=== PATIENT | female | born 1980 | race Asian ===

== ENCOUNTER → 2016-02-21 | Outpatient (CLI) | payer BC ==
[2016-02-21 08:33] LABS: HEMATOCRIT 39.4 % (37-47); MEAN CELL VOLUME 90.8 fL (80-100); MEAN CORPUSCULAR HEMOGLOBIN 31.3 pg (25-34); MEAN PLATELET VOLUME 9.9 fL (7.4-10.4); PLATELET COUNT 261 K/uL (130-400); RED BLOOD COUNT 4.34 M/uL (4.2-5.4); WHITE BLOOD COUNT 5.46 K/uL (4.8-10.8)
[2016-02-21 08:39] LABS: MEAN CORPUSCULAR HGB CONC 34.5 g/dl (32-36)
[2016-02-21 09:19] LABS: RUBELLA SCREEN IgG (AT CCH) IMMUNE (IMMUNE)
[2016-02-24 01:28] LABS: HEMOGLOBIN A2 2.8 % (1.8-3.5); HGB 13.4 g/dL (11.7-15.5); MCH 31.1 pg (27.0-33.0); MCV 92.8 FL (80.0-100.0); RBC 4.31 Mill/uL (3.80-5.10); RDW 13.1 % (11.0-15.0); VARICELLA ZOS VIR IGG VALUE 2.56 INDEX
--- NOTE | 2016-02-29 06:10 | CODING QUERY MEDICAL NECESSITY ---
SUPPORTING DIAGNOSIS NEEDED A supporting diagnosis is required for the test/procedure performed on this patient in order for us to be reimbursed by the patient's insurance. Please provide a supporting diagnosis for the following test/procedure listed below next to the test name along with your signature. *If there is no additional diagnosis for this patient that would support the following test/procedure please document that below next to the test/procedure. Test(s)/Procedure(s) that require a supporting diagnosis: DOS: 02/21/16 * VITAMIN D DIAGNOSIS: Provider Signature: Date: Thank you Ela [facility] Information Management Once completed, please kindly fax back to [phone] For questions please call [phone]
== END | disposition home or self-care (01) ==
LOC: C.LAB1850 07:50
PROVIDERS: ATTEND Specialist
DX: Z31.41 Encounter for fertility testing (principal); Z01.83 Encounter for blood typing; Z11.59 Encounter for screening for other viral diseases; Z11.3 Encounter for screening for infections with a predominantly sexual mode of transmission; Z11.4 Encounter for screening for human immunodeficiency virus [HIV]; Z13.0 Encounter for screening for diseases of the blood and blood-forming organs and certain disorders involving the immune mechanism; Z13.21 Encounter for screening for nutritional disorder

== ENCOUNTER → 2016-08-02 | Outpatient (CLI) | payer BC ==
[2016-08-05 01:36] LABS: CHLAMYDIA TRACH RNA*** NOT DETECTED (NOT DETECTED); GC (NEIS GONORRHOEAE)RNA** NOT DETECTED (NOT DETECTED)
== END | disposition home or self-care (01) ==
LOC: C.LABSPEC 17:37
PROVIDERS: ATTEND Obstetrics & Gynecology
DX: O09.01 Supervision of pregnancy with history of infertility, first trimester (principal)

== ENCOUNTER → 2016-09-21 | Outpatient (CLI) | payer BC ==
[2016-09-21 17:31] LABS: GTGD 50 Grams
[2016-09-25 14:10] LABS: AFP CONCENTRATION 46.3 NG/ML; AFP MULTIPLE OF MEDIAN 1.06; AFPTS INSULIN DEP DIABETIC? NO; AFPTS MATERNAL WT 119 LBS; HISTORY OF NTD NO; REPEAT SAMPLE? NO
== END | disposition home or self-care (01) ==
LOC: C.LAB1850 16:08
PROVIDERS: ATTEND Obstetrics & Gynecology
DX: O09.812 Supervision of pregnancy resulting from assisted reproductive technology, second trimester (principal)

== ENCOUNTER → 2016-12-06 | Outpatient (CLI) | payer BC ==
[2016-12-06 12:13] LABS: HEMATOCRIT 34.8 % (37-47)
[2016-12-06 12:34] LABS: GTGD 50 Grams
[2016-12-06 14:27] LABS: URINE APPEARANCE CLEAR (CLEAR); URINE BILIRUBIN NEG (NEG); URINE COLOR YELLOW; URINE EPITHELIAL CELL AUTO 20-30 /lpf (0-5); URINE NITRITE NEG (NEG); URINE PH 8.5 (4.5-7.5); URINE SPECIFIC GRAVITY 1.014 (1.000-1.030); UROBILINOGEN NEG (NEG)
[2016-12-06 14:31] LABS: MANUAL MICROSCOPIC REQUIRED? NO; REVIEW REQ? NO
== END | disposition home or self-care (01) ==
LOC: C.LAB1850 10:38
PROVIDERS: ATTEND Obstetrics & Gynecology
DX: O09.813 Supervision of pregnancy resulting from assisted reproductive technology, third trimester (principal)

== ENCOUNTER → 2017-02-01 | Outpatient (CLI) | payer BC ==
[~2017-02-01] MED LIST: CALC500C3; OXYC-57 PO; PRENTAB26 PO
== END | disposition home or self-care (01) ==
LOC: C.LABSPEC 13:21
PROVIDERS: ATTEND Obstetrics & Gynecology
DX: O09.813 Supervision of pregnancy resulting from assisted reproductive technology, third trimester (principal)

== ENCOUNTER 2017-02-14 03:39 | Inpatient (IN) | payer OTHER ==
[~2017-02-14] VITALS: Ht 149.9 cm; Wt 65.0 kg
[2017-02-14] MEDS ORDERED: LACTATED RINGER'S 1000ML 1,000 ML IV PRN (04:17)
[2017-02-14] MEDS ORDERED: PRENTAB26 PO (04:41)
[2017-02-14] MEDS ORDERED: CALC500C3 (04:41)
[2017-02-14 04:42] VITALS: Ht 149.9 cm; Wt 65.0 kg
[2017-02-14] MEDS ORDERED: PATIENT'S ALLERGY INFO NEEDS ENTERED SCH (04:45)
[2017-02-14] MEDS ORDERED: EpHEDrine SULFATE INJ 50 MG/ML AMP ONE (04:52)
[2017-02-14] MEDS ORDERED: BUPIVACAINE 0.25% 30 ML VIAL ONE (04:52)
[2017-02-14] MEDS ORDERED: FENTANYL 2MCG/ML ROPIV 1.25MG/ML 100ML BAG EPI ONE (04:52)
[2017-02-14] MEDS ORDERED: FENTANYL CITRATE INJ 50 MCG/1 ML 2 ML VIAL ONE (04:52)
[2017-02-14 04:57] LABS: HEMATOCRIT 37.6 % (37-47); HEMOGLOBIN 12.9 g/dL (12.0-16.0); MEAN CELL VOLUME 90.6 fL (80-100); MEAN CORPUSCULAR HEMOGLOBIN 31.1 pg (25-34); MEAN CORPUSCULAR HGB CONC 34.3 g/dl (32-36); PLATELET COUNT 261 K/uL (130-400); RED CELL DISTRIBUTION WIDTH CV 13.6 % (11.5-14.5); RED CELL DISTRIBUTION WIDTH SD 44.7 fL (36.4-46.3); WHITE BLOOD COUNT 12.51 K/uL (4.8-10.8)
[2017-02-14] MEDS ORDERED: NALOXONE HCL INJ 1 MG in SODIUM CHLORIDE 0.9% 1000ML 1,000 ML IV PRN ×4 (05:44)
[2017-02-14] MEDS ORDERED: LACTATED RINGER'S 1000ML 500 ML IV PRN ×2 (05:44→09:34)
[2017-02-14] MEDS ORDERED: DiphenhydrAMINE HCL 50 MG/ML VIAL IV PRN (05:45)
[2017-02-14] MEDS ORDERED: NALBUPHINE HCL INJ 10 MG/ML AMP IV PRN (05:45)
[2017-02-14] MEDS ORDERED: ONDANSETRON INJ 2 MG/ML 2 ML VIAL IV PRN ×2 (05:45→16:30)
[2017-02-14] MEDS ORDERED: PROMETHAZINE HCL INJ 25 MG in SODIUM CHLORIDE 0.9% 50ML 50 ML IV PRN (05:45)
[2017-02-14] MEDS ORDERED: NALOXONE HCL INJ 0.4 MG/1 ML VIAL/CARP IV PRN (05:45)
[2017-02-14] MEDS ORDERED: EpHEDrine SULFATE INJ 50 MG/ML AMP IV PRN ×2 (05:45→16:30)
[2017-02-14] MEDS: LACTATED RINGER'S 1000ML 1,000 ML IV SCH ×2 (05:47→14:29)
[2017-02-14] MEDS ORDERED: CEFAZOLIN IV 2,000 MG in SYRINGE 0 ML IV SCH (06:00)
[2017-02-14] MEDS: FENTANYL 2MCG/ML ROPIV 1.25MG/ML 100ML BAG EPI PRN ×2 (07:09→13:49)
[2017-02-14] MEDS ORDERED: OXYTOCIN 30 UNITS/500ML NSS IV PRN (09:45)
[2017-02-14] MEDS ORDERED: MoRPHine SULFATE PF 1 MG/ML 10 ML AMP/VIAL ONE (15:37)
[2017-02-14] MEDS ORDERED: LIDOCAINE/EPINEPHRINE 2% 1:200,000 20 ML SDV ONE (15:37)
[2017-02-14] MEDS ORDERED: PHENYLEPHRINE 100MCG/ML 5ML SYR ONE (15:37)
[2017-02-14] MEDS ORDERED: CITRIC ACID/SODIUM CITRATE 15 ML UDC ONE (15:41)
[2017-02-14] MEDS ORDERED: OXYTOCIN INJ 10 UNITS/ML VIAL ONE ×2 (15:46→16:17)
[2017-02-14] MEDS ORDERED: CARBOPROST TROMETHAMINE 250 MCG/ML AMP ONE (15:51)
[2017-02-14] MEDS ORDERED: CEFAZOLIN SOD 1 GM VIAL ONE (16:00)
[2017-02-14] MEDS ORDERED: CITRIC ACID/SODIUM CITRATE 15 ML UDC PO ONE (16:00)
[2017-02-14] MEDS ORDERED: KETOROLAC TROMETHAMINE 30 MG/ML VIAL ONE (16:16)
[2017-02-14] MEDS ORDERED: PHENYLEPHRINE HCL INJ 10 MG/ML VIAL ONE (16:28)
[2017-02-14] MEDS ORDERED: ONDANSETRON INJ 2 MG/ML 2 ML VIAL ONE (16:28)
[2017-02-14] MEDS ORDERED: FENTANYL CITRATE INJ 50 MCG/1 ML 2 ML VIAL IV PRN (16:30)
[2017-02-14] MEDS ORDERED: NO NARCOTICS OR SEDATIVES SCH (16:30)
[2017-02-14] MEDS ORDERED: MEPERIDINE HCL 25 MG/ML CARP IV PRN (16:30)
[2017-02-14] MEDS ORDERED: MoRPHine SULFATE PF 1 MG/ML 10 ML AMP/VIAL EPI PRN (16:30)
[2017-02-14] MEDS ORDERED: ATROPINE SULFATE 0.1 MG/ML 5ML SYR IV PRN (16:30)
[2017-02-14] MEDS ORDERED: CONTINUE MEDICATION ONE (16:30)
[2017-02-14] MEDS ORDERED: KETOROLAC TROMETHAMINE 30 MG/ML VIAL IV. PRN (16:30)
[2017-02-14] MEDS ORDERED: HYDROCORTISONE ACETATE 25 MG SUPP PR PRN (17:00)
[2017-02-14] MEDS ORDERED: BENZOCAINE 20% AER SPR 82.5 GM CAN EXT PRN (17:00)
[2017-02-14] MEDS ORDERED: DIPHTHERIA/TETANUS/PERTUSSIS 0.5 ML SYR/VIAL IM. ONE (17:00)
[2017-02-14] MEDS ORDERED: SUPERCREAM 0.870 % 15GM JAR EXT PRN (17:00)
[2017-02-14] MEDS ORDERED: LANOLIN OINT EXT PRN (17:00)
--- NOTE | 2017-02-14 17:03 | [facility] Post Operative Brief Note ---
Immediate Operative Summary Operative Date Feb 14, 2017. Pre-Operative Diagnosis 1) Term 2) Failure to Descend Post-Operative Diagnosis 1) Same 2) omental adhesions Procedure(s) Performed 1) Primary Caesarean Section; Delivery of a live male child at 1612 2) Lysis of omental adhesions 3) Excision of left paratubal cyst Surgeon Dr Mills Statement Clerks Manager Surgeon(s) Farhana Shannon RN Estimated Blood Loss 800 cc Findings viable male infant, Apgars 8/9; weight: Arterial/Venous cord gasses pending; filmy adhesions of omentum to the posterior surface of the uterus and both fallopian tubes. Adhesions lysed. Left paratubal cyst excised. Fluids (cc crystalloids) 1600 Specimens cord blood venous and arterial blood gases placenta-exam paratubal cyst Drains Wang to gravity Anesthesia Epidural Complication(s) None Disposition L&D
--- NOTE | 2017-02-14 17:05 | Anesthesiology Progress Note ---
Anesthesia Post Op Note Date & Time Feb 14, 2017 at 17:05 Vital Signs Pain Intensity: 0.0 Notes Mental Status: alert / awake / arousable, participated in evaluation Pt Amnestic to Procedure: Yes Nausea / Vomiting: adequately controlled Pain: adequately controlled Airway Patency, RR, SpO2: stable & adequate BP & HR: stable & adequate Hydration State: stable & adequate Anesthetic Complications: no major complications apparent
--- NOTE | 2017-02-14 17:28 | OPERATIVE REPORT ---
DATE OF OPERATION: 02/14/2017 ADMITTING DIAGNOSES: 1. Term . 2. Failure to descend. POSTOPERATIVE DIAGNOSES: 1. Same. 2. Omental adhesions. 3. Paratubal cyst, left. PROCEDURE PERFORMED: 1. Primary low cervical transverse section. 2. Lysis of omental adhesions. 3. Excision of left paratubal cyst. SURGEON: Dr. Mills. ANESTHESIA: Epidural. FINDINGS: Viable male infant with Apgars of 8 and 9, weight of 6 pounds 9 ounces, arterial and venous cord gases pending. Extensive adhesions of the omentum to the posterior surface of the uterus as well as to both adnexa and fallopian tube, these were taken down with cautery, and left paratubal cyst excised and sent for pathological evaluation. PROCEDURE IN DETAIL: The patient was taken to the operating room and after dosing of epidural anesthesia was placed in supine position and draped and prepped in usual fashion. A Pfannenstiel type incision was made. Underlying subcutaneous tissue was dissected down to the ventral abdominal fascia, which was nicked and opened in a horizontal manner. Preperitoneal fascia was dissected away until the peritoneal cavity was entered and opened in a vertical manner. The peritoneum overlying the uterus was elevated, opened in a semi-lunar fashion, the inferior margin of which was taken down creating the bladder flap. Uterus was entered sharply and extended in a semi-lunar fashion manually. A viable male was delivered. Cord was clamped and cut and the baby was passed off to pediatrics who was in attendance for the delivery. Cord gases, cord blood samples obtained. Placenta was delivered spontaneously and sent for pathological evaluation. The uterus was then exteriorized and wiped clean of any residual blood tissue and/or clot. To promote hemostasis, Hemabate 250 mcg was injected directly into the myometrium. The uterine incision was then closed with 2 layers of 4-0 Vicryl, the first a running locking stitch, the second an imbricating stitch. Inspection of the uterus and adnexa showed adhesions extensively of the omentum to the posterior surface of the uterus and to both adnexa. Because of the extensive nature of the adhesions, it was felt that lysis was indicated and using the cautery, the omentum was lysed off the uterus and adnexa. An incidental left paratubal cyst was noted on a long stalk and this was excised and sent for pathological evaluation. The uterus was inspected again for hemostasis, which was present and then the uterus was returned to the pelvic cavity. The paracolic gutters were cleared bilaterally of any blood tissue and/or clot. The sponge and needle count was correct. The rectus muscles were plicated in the midline with a running 2-0 Vicryl stitch. The fascia was closed laterally with a running 0 Vicryl suture. Subcutaneous tissue was irrigated with warm saline and the skin incision was closed with a 5-0 Monocryl subcuticular suture. Sterile dressing was applied and the patient was taken to the recovery room in satisfactory condition. I attest to the content of the Intraoperative Record and any orders documented therein. Any exception s are noted below.
[2017-02-14] MEDS: OXYTOCIN INJ 20 UNITS in LACTATED RINGER'S 1000ML 1,000 ML IV SCH ×2 (17:30→23:07)
[2017-02-14 19:15] VITALS: BP 111/72; PULSE 73; TEMP 36.9; O2SAT 96
[2017-02-14 20:20] VITALS: BP 114/71; PULSE 76; TEMP 36.3; O2SAT 100
[2017-02-14 21:20] VITALS: O2SAT 97
[2017-02-14 22:15] VITALS: O2SAT 96
[2017-02-14 23:05] VITALS: BP 106/62; PULSE 76; TEMP 36.7; O2SAT 97
[2017-02-15] VITALS (14 sets, daily range): BP systolic 95–111; BP diastolic 62–75; PULSE 81–92; TEMP 36.6–36.9; O2SAT 95–100
[2017-02-15] MEDS: OXYTOCIN INJ 20 UNITS in LACTATED RINGER'S 1000ML 1,000 ML IV SCH (04:34)
--- NOTE | 2017-02-15 05:57 | OB/GYN Progress Note ---
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 Subjective conversation w/ patient, physical exam, chart review Ambulation: ambulating normally, limited ambulation Voiding: no voiding problems Passing Gas: Yes Diet Tolerance: Clear Liquids Lochia: Moderate Feeding Type: Breast Feeding Pain: pain at her incision Review of Systems Constitutional: No fever Respiratory: No cough, No shortness of breath Cardiac: No chest pain, No edema Abdomen: No pain, No nausea, No vomiting Female : No dysuria Objective Vital Signs Date Time Temp Pulse Resp B/P (MAP) Pulse Ox O2 Delivery O2 Flow Rate FiO2 02/15/17 05:00 16 96 02/15/17 04:00 18 95 02/15/17 03:10 36.9 86 18 95/62 (73) 96 Room Air 02/15/17 03:00 18 96 02/15/17 02:00 16 98 02/15/17 01:00 18 97 02/15/17 00:00 16 97 02/14/17 23:05 36.7 76 16 106/62 (77) 97 Room Air 02/14/17 23:05 97 Room Air 02/14/17 23:05 16 97 02/14/17 22:15 18 96 02/14/17 21:20 18 97 02/14/17 20:20 18 100 02/14/17 20:20 36.3 76 18 114/71 (85) 100 Room Air 02/14/17 19:15 36.9 73 18 111/72 (85) 96 Room Air 02/14/17 19:15 18 96 02/14/17 19:15 96 Room Air 02/14/17 19:15 96 Room Air Physical Exam General Appearance: WELL-APPEARING, WD/WN, NO APPARENT DISTRESS Respiratory/Chest: normal breath sounds, no respiratory distress Cardiovascular: regular rate, rhythm, no edema Abdomen: non tender, soft Fundus: Firm, Relation to Umbilicus Incision Description: Clean, Dry & Intact Extremities: normal inspection, no pedal edema, no calf tenderness Assessment and Plan Post-Op Day Number: 1 Continue Routine Care: 36 yo female now 1 delivered cs post op day 1 (02/14/17, 16:12) Delivered at 37.6 weeks Patient is GBS-/O+/RI Patient is fatigued this morning. Reviewed vital signs, all WNL. Hgb 12.9 on admission, 10.3 today. Patient has only had 150 ml in 7hrs, which is about 22cc. Patient currently on IVF and tolerating oral intake. Will monitor I/O and encourage ambulation. Plan; 1. Monitor i/o, continue IVF and encourage oral intake--> giving 500 cc bolus of LR, and increasing maintenance rate to 200 cc/hr 2. Remove dressing after 24hours to access incision. Dressing is dry and clean. 3. Encourage ambulation Resident Physician Supervision Note: I interviewed and examined the patient. Discussed with Dr. Finn and agree with findings and plan as documented in the note. Any exceptions or clarifications are listed here: decreased output, suspect dry, bolus, increase rate Documented By: Simon Mills
[2017-02-15 06:40] LABS: HEMATOCRIT 30.6 % (37-47); HEMOGLOBIN 10.3 g/dL (12.0-16.0); MEAN CELL VOLUME 90.5 fL (80-100); MEAN CORPUSCULAR HEMOGLOBIN 30.5 pg (25-34); MEAN CORPUSCULAR HGB CONC 33.7 g/dl (32-36); MEAN PLATELET VOLUME 8.9 fL (7.4-10.4); PLATELET COUNT 195 K/uL (130-400); RED CELL DISTRIBUTION WIDTH CV 13.9 % (11.5-14.5); RED CELL DISTRIBUTION WIDTH SD 45.5 fL (36.4-46.3); WHITE BLOOD COUNT 18.84 K/uL (4.8-10.8)
[2017-02-15 07:07] LABS: BASO % 0.1 %; BASO ABS # 0.02 K/uL (0-0.2); EOS % 0.7 %; EOS ABS # 0.14 K/uL (0-0.5); IG# 0.07 K/uL (0.00-0.02); LYMPH % 7.7 %; LYMPH ABS # 1.46 K/uL (1.2-3.4); MONO % 5.3 %; NEUT % 85.8 %; NEUT ABS # 16.15 K/uL (1.4-6.5)
[2017-02-15] MEDS ORDERED: LACTATED RINGER'S 1000ML 500 ML IV ONE (07:45)
[2017-02-15] MEDS ORDERED: LACTATED RINGER'S 1000ML 1,000 ML IV SCH (08:00)
[2017-02-15] MEDS: FERROUS SULFATE 325 MG TAB PO SCH (09:18)
[2017-02-15] MEDS: PRENATAL VITAMIN TAB PO SCH (09:19)
[2017-02-15 10:10] LABS: CALCIUM 8.6 mg/dl (8.5-10.1); CREATININE 0.69 mg/dl (0.60-1.20); POTASSIUM 3.7 mmol/L (3.5-5.1)
[2017-02-15] MEDS ORDERED: KETOROLAC TROMETHAMINE 30 MG/ML VIAL IV. PRN (10:15)
[2017-02-15] MEDS ORDERED: DiphenhydrAMINE HCL 50 MG/ML VIAL IV PRN (10:15)
[2017-02-15] MEDS ORDERED: ONDANSETRON INJ 2 MG/ML 2 ML VIAL IV PRN (10:15)
[2017-02-15] MEDS ORDERED: OXYCODONE/ACETAMINOPHEN 5-325 TAB PO PRN ×2 (10:15)
[2017-02-15] MEDS ORDERED: DC INTRASPINAL MORPHINE SCH (10:15)
[2017-02-15] MEDS ORDERED: SENNA 8.6 MG TAB PO PRN (17:00)
[2017-02-15] MEDS: MAGNESIUM HYDROXIDE SUSP 30 ML UDC PO SCH (22:08)
[2017-02-16 00:35] VITALS: BP 113/71; PULSE 98; TEMP 38
[2017-02-16 03:45] VITALS: BP 109/75; PULSE 88; TEMP 37.1
--- NOTE | 2017-02-16 06:07 | Discharge Instructions ---
Discharge Instructions Date of Service Feb 16, 2017. Admission Reason for Admission: LABOR Discharge Discharge Diagnosis / Problem: recovery from c section Discharge Goals Goal(s): Routine recovery after Medications Continue Dispensed Medications: supercream, dermaplast, tucks, lansinoh Activity Recommendations Activity Limitations: per Instructions/Follow-up section . Instructions / Follow-Up Instructions / Follow-Up ACTIVITY RECOMMENDATIONS: * Gradual return to full activity over the next 2-3 weeks. * No lifting - nothing heavier than baby over the next 2-3 weeks. * Do not engage in vigorous exercise, sexual activity or sports until cleared by your physician. * Do not drive or operate any motorized equipment until cleared by your physician. * You may shower/bathe daily. MEDICATIONS: For discomfort or pain, you may use Acetaminophen (Tylenol), Ibuprofen (Advil), or Naproxen (Aleve) following the package directions. For constipation you may use Colace following the package directions. BREAST CARE: If you are not breast feeding: * Wear a supportive bra 24 hours a day for one to two weeks. * Avoid stimulating your breasts and nipples as much as possible during the first few weeks after delivery. * When taking a shower, have the warm water hit your back, not breasts. * When your breasts feel full, apply ice packs. Usually three to four times a day helps ease the discomfort. * Take a mild pain medication (Tylenol / Motrin) when you are uncomfortable. If breast feeding: * Use breast milk to lubricate nipples. Lansinoh cream may be used for sore nipples. You do not need to remove cream prior to breast feeding. If using a different brand of cream, check the label for directions regarding removal of cream prior to nursing. * Wear a supportive bra. * If having problems with breasts or breast feeding, call a retirement consultant or your health care provider. SPECIAL CARE INSTRUCTIONS: When you are discharged from the hospital, it is important for you to follow the instructions listed below: * During the first week at home, you should be able to care for yourself and your baby. In addition, the usual light household activities are encouraged. * Limit your activities to the way you feel. Do not try to clean the house or move furniture. Be sensible. * If you actively engage in sports and have done so up until the time of your delivery, you may resume these activities as soon as you feel able. This may take up to one month or even longer. Use good judgment. * Continue to take your vitamins for at least six weeks after the of your baby. * Your diet need not be limited unless you were on a special diet before your delivery. Breast-feeding mothers need around 2500 calories per day and at least 64-80 ounces of fluid per day (8 to 10 glasses). * You should eat foods from the four major food groups. Crash diets or fad diets are to be avoided. Eating lean meats, fresh fruits and vegetables, low-fat dairy products, high fiber foods and a regular exercise program, will help you get back to your pre- weight without putting your health at risk. * Constipation is sometimes a problem after delivery. Take a mild laxative as needed. If breast feeding, Milk of Magnesia is acceptable to use. You may use a suppository or Fleets enema. * A daily shower or tub bath is suggested. Wash incision daily with warm soapy water and pat dry. It doesn't need to be covered unless drainage is present. * A bloody vaginal discharge will usually continue until around four weeks . A small amount of bleeding may continue for as long as six weeks. Vaginal discharge changes from the bright red bleeding after delivery to pink then brownish and finally yellowish-pink before becoming white and disappearing. * Bleeding may increase with activity. Your first period may come in 4-8 weeks. If you are breast feeding, your period may be delayed even longer. * [place] (sex) can begin whenever both you and your partner feel comfortable and do not have any form of genital infection. It is recommended that you wait at least six weeks for internal and external healing to occur. If you have questions, please talk to your health care practitioner. A condom should be used to prevent infection and . * Foreplay, gentle intercourse and lubrication is very important the first several times to prevent pain. A water-based lubricant such as K-Y jelly or Astroglide may be used. * If you have RH negative blood and your baby is RH positive, you will receive RHOGAM by injection prior to discharge. The nurse will give you a card to keep with you that has the date and place that you received RHOGAM after delivery. * During your care, you had a Rubella screen done to check for the presence of rubella antibodies in your blood. If your test was negative, you will receive a Rubella vaccine prior to discharge. This vaccine may cause a fever, soreness at the injection site and flu-like symptoms. If these symptoms persist, notify your health care practitioner. is not advised for one month after a Rubella vaccine. * Verbalizes understanding of car seat law as reviewed with patient nursing. * Car Seat hand-out given and reviewed with patient by nursing. * Shaken baby information reviewed with patient by nursing. Call you doctor if: * Heavy bleeding (saturating several pads an hour) or passing clots the size of your fist. * A fever >101 degrees F (38.3 degrees C) on two occasions four hours apart and /or chills. * Unusual pain in the pelvic or vaginal areas. * Call the doctor for any increased redness, drainage or swelling around the incision and any pain unrelieved by prescribed pain medication. * "Baby Blues" lasting longer than two weeks. If you have any questions or concerns, call your health care practitioner at . FOLLOW UP VISIT: * Please call the office at to schedule a 6 week examination. It is important you keep this appointment. It is important for you to make arrangements for either yearly or twice yearly check-ups thereafter. Current Hospital Diet Patient's current hospital diet: Regular OB Diet Discharge Diet Recommended Diet: Regular OB Diet Procedures Procedures Performed: 1) Primary Caesarean Section; Delivery of a live male child at 1612 2) Lysis of omental adhesions 3) Excision of left paratubal cyst Pending Studies Studies pending at discharge: no Medical Emergencies . Who to Call and When: Medical Emergencies: If at any time you feel your situation is an emergency, please call [phone] immediately. . Non-Emergent Contact Non-Emergency issues call your: House Calls Nurse Practitioner . . "Provider Documentation" section prepared by Seb Finn. . VTE Core Measure Inpt VTE Proph given/why not?: SCD's
[2017-02-16 06:58] LABS: HEMATOCRIT 30.3 % (37-47); HEMOGLOBIN 10.1 g/dL (12.0-16.0)
[2017-02-16] MEDS: FERROUS SULFATE 325 MG TAB PO SCH (07:26)
[2017-02-16] MEDS: PRENATAL VITAMIN TAB PO SCH (07:27)
[2017-02-16] MEDS: IBUPROFEN 600 MG TAB PO PRN ×3 (07:31→17:22)
--- NOTE | 2017-02-16 07:46 | OB/GYN Progress Note ---
FELT PULLER Progress Note Date of Service Feb 16, 2017. Subjective conversation w/ patient, conversation w/ family, physical exam, chart review, lab review Ambulation: limited ambulation Voiding: no voiding problems Passing Gas: Yes Diet Tolerance: Regular Diet Lochia: Small Feeding Type: Breast Feeding Pain: tenderness at incision with movement Review of Systems Constitutional: No fever, No chills Respiratory: No cough, No shortness of breath Cardiac: No chest pain, No palpitations Abdomen: No pain, No nausea, No vomiting Female : No dysuria Objective Vital Signs Date Time Temp Pulse Resp B/P (MAP) Pulse Ox O2 Delivery O2 Flow Rate FiO2 02/16/17 03:45 37.1 88 18 109/75 (86) Room Air 02/16/17 00:35 Room Air 02/16/17 00:35 38.0 98 18 113/71 (85) Room Air 02/15/17 15:50 100 Room Air 02/15/17 15:50 36.6 81 18 111/75 (87) 100 Room Air 02/15/17 11:30 36.9 92 20 107/71 (83) 97 Room Air 02/15/17 10:15 20 96 02/15/17 09:15 22 96 02/15/17 08:15 20 97 Physical Exam General Appearance: WELL-APPEARING, WD/WN, NO APPARENT DISTRESS Respiratory/Chest: lungs clear, normal breath sounds Cardiovascular: regular rate, rhythm, no murmur Abdomen: + tenderness (general tenderness lower quadrants with palpation ) Fundus: Firm Incision Description: Clean, Dry & Intact (swelling inferior to incision ) Extremities: no pedal edema, no calf tenderness Laboratory Results Last 24 Hours Test 02/15/17 09:21 02/16/17 06:31 Sodium Level 135 mmol/L Potassium Level 3.7 mmol/L Chloride Level 105 mmol/L Carbon Dioxide Level 25 mmol/L Anion Gap 5.0 mmol/L Blood Urea Nitrogen 7 mg/dl Creatinine 0.69 mg/dl Est Creatinine Clear Calc Drug Dose 93.3 ml/min Estimated GFR () 130.7 Estimated GFR (Non- 112.8 BUN/Creatinine Ratio 10.7 Random Glucose 73 mg/dl Calcium Level 8.6 mg/dl Hemoglobin 10.1 g/dL Hematocrit 30.3 % Assessment and Plan Post-Op Day Number: 2 Continue Routine Care: 36 yo female now 1 delivered cs post op day 1 (02/14/17, 16:12) Delivered at 37.6 weeks Patient is GBS-/O+/RI Patient is fatigued this morning. Reviewed vital signs, all WNL. Hgb 12.9 on admission, 10.3 yesterday. Patient output normalized after LR yesterday. Baby is under the care of peds, receiving IV abx. Plan; 1. Monitor i/o, continue IVF and encourage oral intake 2. Encourage ambulation 3. Monitor lochia, incision and control pain Resident Physician Supervision Note: I was present with Dr. Finn during the history and exam. I discussed the case with the resident and agree with the findings and plan as documented in the note. Any exceptions or clarifications are listed here: POD#2, doing well. Plans to stay until tomorrow. Documented By: Gely Alejo
[2017-02-16 08:00] VITALS: BP 108/73; PULSE 89; TEMP 36.9; O2SAT 95
[2017-02-16 12:00] VITALS: BP 98/64; PULSE 67; TEMP 36.4
[2017-02-16 17:00] VITALS: BP 119/82; PULSE 76; TEMP 36.5; O2SAT 100
[2017-02-16] MEDS: MAGNESIUM HYDROXIDE SUSP 30 ML UDC PO SCH (22:00)
[2017-02-16 23:30] VITALS: BP 120/66; PULSE 70; TEMP 36.7; O2SAT 97
--- NOTE | 2017-02-17 06:12 | OB/GYN Progress Note ---
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 Subjective conversation w/ patient, physical exam, chart review, lab review Ambulation: ambulating normally Voiding: no voiding problems Passing Gas: Yes Diet Tolerance: Regular Diet Lochia: Small Feeding Type: Breast Feeding Pain: 2/10 tenderness with movement and ambulation Review of Systems Constitutional: No fever, No chills Respiratory: No cough, No shortness of breath Cardiac: No chest pain Abdomen: No pain, No nausea, No vomiting Female : No dysuria Objective Vital Signs Date Time Temp Pulse Resp B/P (MAP) Pulse Ox O2 Delivery O2 Flow Rate FiO2 02/16/17 23:30 97 Room Air 02/16/17 23:30 36.7 70 18 120/66 (84) 97 Room Air 02/16/17 17:00 36.5 76 18 119/82 (94) 100 Room Air 02/16/17 17:00 100 Room Air 02/16/17 12:00 36.4 67 18 98/64 (75) Room Air 02/16/17 08:00 36.9 89 18 108/73 (85) 95 Room Air 02/16/17 07:30 Room Air Physical Exam General Appearance: WELL-APPEARING, WD/WN, NO APPARENT DISTRESS Respiratory/Chest: lungs clear, normal breath sounds Cardiovascular: regular rate, rhythm, no murmur Abdomen: non tender, soft Fundus: Firm Incision Description: Clean, Dry & Intact Extremities: no calf tenderness, + pedal edema (bilateral ) Laboratory Results Last 24 Hours Test 02/16/17 06:31 Hemoglobin 10.1 g/dL Hematocrit 30.3 % Assessment and Plan Post-Op Day Number: 3 Continue Routine Care: Continue Routine Care: 36 yo female now 1 delivered cs post op day 3 (02/14/17, 16:12) Delivered at 37.6 weeks/ Patient is GBS-/O+/RI Patient is fatigued this morning. Reviewed vital signs, all WNL. Hgb 12.9 on admission, 10.3 (02/15), 10.1 (02/16). Baby is under the care of peds, receiving IV abx. May need nesting room for the patient after discharge. Awaiting dispo today from peds. Plan; 1. Continue pp care; ambulate, control pain, support , monitor lochia 2. Discussed discharge instructions with patient Resident Physician Supervision Note: I interviewed and examined the patient. Discussed with Dr. Finn and agree with findings and plan as documented in the note. Any exceptions or clarifications are listed here: Doing well. d/c based on disposition of the baby. Documented By: Elizabet Muñoz
[2017-02-17 07:55] VITALS: BP 122/85; PULSE 80; TEMP 36.5
[2017-02-17] MEDS: IBUPROFEN 600 MG TAB PO PRN ×2 (07:57→14:39)
[2017-02-17] MEDS: FERROUS SULFATE 325 MG TAB PO SCH (07:58)
[2017-02-17] MEDS: PRENATAL VITAMIN TAB PO SCH (07:58)
[2017-02-17 15:55] VITALS: BP 112/75; PULSE 67; TEMP 36.7
[2017-02-17] MEDS: MAGNESIUM HYDROXIDE SUSP 30 ML UDC PO SCH (22:18)
[2017-02-18 00:35] VITALS: BP 120/79; PULSE 78; TEMP 36.5; O2SAT 97
[2017-02-18 07:13] VITALS: BP 120/84; PULSE 79; TEMP 36.3
[2017-02-18] MEDS: FERROUS SULFATE 325 MG TAB PO SCH (07:52)
[2017-02-18] MEDS: PRENATAL VITAMIN TAB PO SCH (07:52)
[2017-02-18] MEDS: IBUPROFEN 600 MG TAB PO PRN (07:52)
--- NOTE | 2017-02-18 08:14 | Progress Note ---
Subjective Feb 18, 2017. Subjective conversation w/ patient, physical exam Ambulation: ambulating normally Voiding: no voiding problems Passing Gas: Yes Diet Tolerance: Regular Diet Lochia: Moderate Feeding Type: Breast Feeding Objective Vital Signs Date Time Temp Pulse Resp B/P (MAP) Pulse Ox O2 Delivery O2 Flow Rate FiO2 02/18/17 07:13 36.3 79 20 120/84 (96) Room Air 02/18/17 00:35 36.5 78 16 120/79 (93) 97 Room Air 02/18/17 00:35 Room Air 97 02/17/17 15:55 36.7 67 20 112/75 (87) Room Air 02/17/17 15:55 Room Air Physical Exam General Appearance: WELL-APPEARING, NO APPARENT DISTRESS Respiratory/Chest: no respiratory distress, no accessory muscle use Cardiovascular: no edema Abdomen: non tender, soft Fundus: Firm Incision Description: Clean, Dry & Intact Extremities: no calf tenderness Assessment and Plan Post-Op Day#: 4 Continue Routine Care: Eager for discharge.
[2017-02-18] MEDS ORDERED: OXYC-57 PO (08:16)
[2017-02-18 09:55] VITALS: BP_DIAS 84; PULSE 79; TEMP 36.3
--- NOTE | 2017-02-21 12:24 | DISCHARGE SUMMARY ---
ADMITTING DIAGNOSES: 1. Term IVF . 2. Advanced maternal age. DISCHARGE DIAGNOSES: 1. Same. 2. Failure to descend. PROCEDURE PERFORMED: Primary low cervical transverse section. DISCHARGE MEDICATIONS: Percocet 5/325 1-2 p.o. q. 4-6 hours p.r.n. pain. ADMISSION HISTORY: The patient is a 36-year-old 3, para 0 with an EDC of 01 March who is admitted at 37+ weeks gestational age in active labor. The patient's was dated by an IVF transfer date. The patient had had a benign course. She had been followed per the advanced maternal age/IVF protocol and echo was within normal limits. She had growth scans every 4 weeks and reassuring testing. Blood type was O positive, antibody negative, rubella immune, hepatitis B negative. She had a negative panorama screen. She had a negative maternal serum AFP. She had a normal 1 hour Glucola x2 and a negative third trimester beta strep culture. PHYSICAL EXAMINATION: GENERAL: Admission physical showed a pleasant female, in no acute distress. VITAL SIGNS: Blood pressure 110/60. HEAD, EYES, EARS, NOSE, AND THROAT: Unremarkable. NECK: Supple. LUNGS: Clear. HEART: With a regular rhythm and rate. ABDOMEN: Gravid, vertex, positive heart tones, estimated weight of 8 pounds. PELVIC EXAMINATION: Showed the cervix to be 4 cm dilated, 90% effaced, -2 station. EXTREMITIES: Showed no deep calf tenderness. NEUROLOGIC: Grossly intact. ADMISSION LABORATORY VALUES: Showed an H&H of 12.9 and 37.6. HOSPITAL COURSE: The patient was deemed to be in early active labor and was admitted. She became uncomfortable. Anesthesia was consulted and an epidural was placed. Shortly thereafter, delivering physician assumed care for the patient. On my examination showed the cervix to now be 7 cm dilated but the contractions were very mild to palpation after the epidural. An intrauterine pressure catheter was placed to assess the quality of contractions. Contractions turned out to be less than 50 mmHg pressure and Pitocin was initiated per induction protocol. Over the next several hours the patient progressed to full dilatation and began her second stage. The patient pushed for nearly 3 hours with minimal descent of the vertex. heart rate tracing was category 2. Discussed with the patient and her the diagnosis of arrested descent and the patient was taken to the operating room where she underwent the primary low cervical transverse section. Operative findings showed a viable male with Apgars of 8 and 9, weight of 6 pounds 9 ounces. There were extensive adhesions of the omentum to the posterior surface of the uterus as well as both the adnexa and fallopian tubes. These were taken down with cautery. Left paratubal cyst was excised and sent for pathological examination. Postoperatively, the patient did well. Awng catheter was removed on the first postoperative day. H&H came back stable at 10.9 and 30. By the 3rd postoperative day, the patient was ambulating without difficulty and tolerating a regular diet. She was discharged home with routine discharge instructions and the prescriptions for the medications as listed as above. She will follow up in the office for postoperative check but as always she has been instructed to call with any questions, problems or difficulties.
== END 2017-02-18 10:30 | disposition home or self-care (01) | DRG 766 ==
LOC: C.OPB 03:39 → C.LD 03:39 → C.OPB 04:18 → C.OBG 19:24
PROVIDERS: ADMIT Obstetrics & Gynecology; ATTEND Obstetrics & Gynecology
PROC: 10D00Z1 Extraction of Products of Conception, Low, Open Approach (ICD-10-PCS; principal; 2017-02-14 15:53)
DX: O62.1 Secondary uterine inertia (principal); O09.513 Supervision of elderly primigravida, third trimester; Z3A.38 38 weeks gestation of pregnancy; Z37.0 Single live birth; N83.8 Other noninflammatory disorders of ovary, fallopian tube and broad ligament

== ENCOUNTER → 2017-04-12 | Outpatient (CLI) | payer OTHER | END | disposition home or self-care (01) | LOC: C.PAPS 11:41 | PROVIDERS: ATTEND Obstetrics & Gynecology | DX: Z12.4 Encounter for screening for malignant neoplasm of cervix (principal); Z11.51 Encounter for screening for human papillomavirus (HPV) ==

== ENCOUNTER 2019-06-20 00:04 | Inpatient (IN) ==
--- NOTE | 2019-06-20 00:42 | History & Physical Report ---
Date of Service June 20, 2019 Assessment & Plan (1) Previous delivery affecting , antepartum: (2) Low lying placenta nos or without hemorrhage, unspecified trimester: (3) Active labor at term: -Tracing is category 2 with variability in good accelerations -Patient in active labor -Previous section and scheduled repeat section -Patient with low-lying placenta -Peds and anesthesia notified -We will proceed with repeat low cervical transverse section History of Present Illness Chief Complaint: Active labor Primary Care Provider: NO PCP The patient is a 38-year-old 2 para 1 with an EDC of 26 June at 39+ weeks gestational age presents to labor and delivery in active labor. Patient states the contractions began at approximately 2200 hrs. on 18 June and increased in frequency. Patient denies rupture membranes or vaginal bleeding. The patient is scheduled for a repeat section on 19 June. Her previous his delivery was a section. This was complicated by a low-lying placenta 1.4 cm from the office and the patient has opted for a repeat section. Please see previous dictated H&P by the previous admitting physician for details of the . 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 Feels Safe at Home: Yes Smoking Status: Never smoker Second Hand Exposure: No ; Hx Alcohol Use: No Hx Substance Use: No Physical Exam Constitutional: WD/WN, vitals as above Neck: trachea midline, no thyromegaly Respiratory: normal respiratory effort, lungs clear to auscultation Cardiovascular: RRR, no murmur, no edema Extremities: no calf tenderness Gastrointestinal (Abdomen): Gravid, vertex, positive heart tones, positive palpable contractions every 3 minutes, estimated weight of 6-1/2 pounds Skin: no lesions Psychiatric: A+Ox3, euthymic affect Genitourinary: Cervix: 3 cm / 100%/0 station Lymphatic: no lymphadenopathy Results & Data Vital Signs (Past 12 Hours) Vital Signs Temp Pulse Resp BP 06/20/19 00:23 96 H 92/54 L 06/20/19 00:21 98.4 F 20 Code Status & VTE Plan VTE Prophylaxis Plan VTE Prophylaxis will be ordered: Yes Coding Level of Care Code None Diagnoses Previous delivery affecting , antepartum O34.219 Low lying placenta nos or without hemorrhage, unspecified trimester O44.40 Active labor at term
[2019-06-20] MEDS ORDERED: LACTATED RINGER'S 1,000 ML IV SCH ×3 (00:45→18:46)
[2019-06-20] MEDS ORDERED: CEFAZOLIN 2000MG 2,000 MG/15 ML SYR IV ONE (00:45)
[2019-06-20] MEDS ORDERED: CITRIC ACID/SODIUM CITRATE 15 ML UDC PO ONE (00:45)
[2019-06-20 00:55] LABS: Basophils # (auto) 0.02 K/uL (0-0.2); Basophils % (auto) 0.1 %; Eosinophils # (auto) 0.07 K/uL (0-0.5); Eosinophils % (auto) 0.3 %; Hematocrit (blood only) 37.3 % (37-47); Hemoglobin 12.8 g/dL (12.0-16.0); Immature Granulocytes # (auto) 0.14 K/uL (0.00-0.02); Immature Granulocytes % (auto) 0.6 %; Lymphocytes # (auto) 1.85 K/uL (1.2-3.4); Lymphocytes % (auto) 8.5 %; Mean Corpuscular Hemoglobin 31.5 pg (25-34); Mean Corpuscular Hgb Conc 34.3 g/dL (32-36); Mean Corpuscular Volume 91.9 fL (80-100); Mean Platelet Volume 9.1 fL (7.4-10.4); Monocytes # (auto) 1.77 K/uL (0.11-0.59); Monocytes % (auto) 8.2 %; Neutrophils # (auto) 17.82 K/uL (1.4-6.5); Neutrophils % (auto) 82.3 %; Platelet Count 251 K/uL (130-400); RDW Coefficient of Variation 14.2 % (11.5-14.5); RDW Standard Deviation 47.1 fL (36.4-46.3); Red Blood Count 4.06 M/uL (4.2-5.4); White Blood Count 21.67 K/uL (4.8-10.8)
--- NOTE | 2019-06-20 02:06 | Post Operative Brief Note ---
PG Immediate Post Op with CF Date of Surgery June 20, 2019 Pre & Post Diagnosis Operation Date: 06/20/19 01:15 Pre-Op Diagnosis: 1. Term 2. Previous section 3. Active labor Post-Op Diagnosis: 1. Term 2. Previous section 3. Active labor I identified the patient and participated in the time-out.: Yes Procedure Operation Date: 06/20/19 01:15 Actual Procedures p Section in LD for live female infant at 0136 - Simon Mills Jr, MD, FACOG Surgeon Simon Milsl Jr, MD, FACOG Physician Coder Wanda Estimated Blood Loss 800 Findings See Below (viable female infant, Apgars 8/9; gasses pending, normal appearing tubes and ovaries bilaterally) Specimens Specimen Description: A: Cord blood B: Placenta C: Cord blood gases Drains Wang Catheter (placed after anesthesia without difficulty)
[2019-06-20] MEDS ORDERED: OXYTOCIN 10 UNITS/ML VIAL ONE (02:16)
[2019-06-20] MEDS ORDERED: CARBOPROST TROMETHAMINE 250 MCG/ML AMPUL IM ONE (02:17)
[2019-06-20] MEDS ORDERED: DiphenhydrAMINE HCL 50 MG/ML VIAL IV PRN ×3 (02:26→20:27)
[2019-06-20] MEDS ORDERED: NALOXONE HCL 0.4 MG/1 ML VIAL/CARP IV PRN (02:26)
[2019-06-20] MEDS ORDERED: ePHEDrine sulfate 50 MG/ML AMP IV PRN (02:26)
[2019-06-20] MEDS ORDERED: MoRPHine SULFATE PF 1 MG/ML 10 ML AMP/VIAL INT SPINAL ONE (02:26)
[2019-06-20] MEDS ORDERED: NALBUPHINE HCL INJ 10 MG/ML AMP IV PRN (02:26)
[2019-06-20] MEDS ORDERED: KETOROLAC 30 MG/ML VIAL IV PRN ×2 (02:26→20:27)
[2019-06-20] MEDS ORDERED: ONDANSETRON INJ 2 MG/ML 2 ML VIAL IV PRN (02:26)
[2019-06-20] MEDS ORDERED: PROMETHAZINE HCL 25 MG in SODIUM CHLORIDE 0.9% 50 ML IV PRN (02:26)
[2019-06-20] MEDS ORDERED: MEPERIDINE HCL 25 MG/ML CARP/VIAL IV PRN (02:26)
[2019-06-20] MEDS ORDERED: MoRPHine SULFATE 2 MG/ML CARP IV PRN (02:26)
[2019-06-20] MEDS ORDERED: METOCLOPRAMIDE HCL 20 MG in SODIUM CHLORIDE 0.9% 50 ML IV PRN (02:26)
[2019-06-20] MEDS ORDERED: NALOXONE HCL 1 MG in SODIUM CHLORIDE 0.9% 1000ML 1,000 ML IV PRN (02:26)
[2019-06-20] MEDS ORDERED: LACTATED RINGER'S 500 ML IV PRN (02:26)
[2019-06-20] MEDS ORDERED: NALOXONE HCL 0.08 MG in SYRINGE 1.8 ML IV PRN (02:26)
[2019-06-20] MEDS ORDERED: BENZOCAINE 20% AER SPR 82.5 GM CAN EXT PRN (02:29)
[2019-06-20] MEDS ORDERED: DIPHTHERIA/TETANUS/PERTUSSIS 0.5 ML SYR/VIAL IM ONE (02:29)
[2019-06-20] MEDS ORDERED: HYDROCORTISONE ACETATE 25 MG SUPP PR PRN (02:29)
[2019-06-20] MEDS ORDERED: SUPERCREAM 0.870% 15 GM JAR EXT PRN (02:29)
[2019-06-20] MEDS ORDERED: DC INTRASPINAL MORPHINE SCH (02:30)
[2019-06-20] MEDS ORDERED: NO NARCOTICS OR SEDATIVES SCH (02:30)
[2019-06-20] MEDS ORDERED: SODIUM CHLORIDE 0.9% 1000ML 1,000 ML IV SCH (02:30)
[2019-06-20 02:40] LABS: Base Excess Cord Arterial Bld -1.5 mEq/L (-9-1.8); Base Excess Cord Venous Blood -2.4 mEq/L (-7.7-1.9); CO2 Cord Arterial Blood 51 mmHg (39.1-73.5); Cord Venous Blood HCO3 22 mmol/L (18.4-26.8); Cord Venous Blood PCO2 39 mmHg (30.4-57.2); Cord Venous Blood PO2 28 mmHg (14.1-43.3); Cord Venous Blood pH 7.38 (7.20-7.44); HCO3 Cord Arterial Blood 26 mmol/L (19.7-28.5); PO2 Cord Arterial Blood 13 mmHg (4.1-31.7); pH Cord Arterial Blood 7.32 (7.1-7.38)
[2019-06-20 02:41] LABS: Oxygen Sat Cord Arterial Blood < 60.0 % (<60)
--- NOTE | 2019-06-20 03:05 | Anesthesiology Consultation ---
Date of Service June 20, 2019 Assessment & Plan Chart Review Chart Review: Acceptable Risk for Surgery Consults Requested none History Surgery Operation Date: 06/20/19 01:15 Proposed Procedures p Section in LD - Simon Mills Jr, MD, FACOG Height/Weight Height: 5 ft Weight: 66.678 kg Allergies Allergy/AdvReac Type Severity Reaction Status Date / Time No Known Allergies Allergy Verified 06/19/19 08:35 Medications Home Medications Medication Instructions Recorded Confirmed Last Taken vit-iron fum-folic ac 1 tab PO DAILY 06/20/19 06/20/19 06/19/19 08:00 [ Vitamin] NPO Date Last Intake of Fluids: 06/19/19 Time Last Intake of Fluids: 19:00 Date Last Intake of Solids: 06/19/19 Time Last Intake of Solids: 18:00 Past Medical History Medical History Chlamydia Encounter for anatomic survey History of in vitro fertilization Normal labor Past Family History Family History Other No family history of disorders Past Surgical History Surgical History S/P Social History Smoking Status: Never smoker Do You Dip or Chew Tobacco: No Hx Alcohol Use: No Hx Substance Use: No substance use type: does not use Physical Exam Vital Signs Last Vital Signs Temp 36.7 C 06/20/19 02:34 Pulse 114 H 06/20/19 03:03 Resp 20 06/20/19 02:44 BP 129/71 06/20/19 02:56 Pulse Ox 100 06/20/19 03:03 Testing Laboratory Results 06/20/19 00:41 Blood Type O Positive 06/20/19 00:41 Antibody Screen NEGATIVE 06/20/19 00:41
--- NOTE | 2019-06-20 03:06 | Anesthesiology Progress Note ---
Date of Service June 20, 2019 Anesthesia Post Procedure Vital Signs Vital Signs: Temp Pulse Resp BP Pulse Ox 06/20/19 03:03 114 H 100 06/20/19 02:58 111 H 100 06/20/19 02:56 109 H 129/71 06/20/19 02:53 101 H 100 06/20/19 02:48 118 H 100 06/20/19 02:44 104 H 20 121/65 100 06/20/19 02:43 112 H 100 06/20/19 02:38 117 H 100 06/20/19 02:34 36.7 C 116 H 18 123/62 06/20/19 02:33 123 H 100 06/20/19 02:28 121 H 100 06/20/19 02:24 122 H 121/68 06/20/19 00:35 36.9 C 96 H 20 92/54 L 06/20/19 00:23 96 H 92/54 L 06/20/19 00:21 36.9 C 20 Transfer of Care Handoff Completed per policy Notes Mental Status: alert / awake / arousable and participated in evaluation Patient Amnestic to Procedure: Yes Nausea / Vomiting: adequately controlled Pain: adequately controlled Airway Patency, RR, SpO2: stable & adequate BP & HR: stable & adequate Hydration State: stable & adequate Neuraxial Anesthesia: was administered and sensory block is resolving Anesthetic Complications: no major complications apparent
[2019-06-20] MEDS: OXYTOCIN 20 UNITS in LACTATED RINGER'S 1,000 ML IV SCH ×2 (03:16→11:52)
--- NOTE | 2019-06-20 08:58 | Operative Report (OR) ---
DATE OF OPERATION: 06/20/2019 PREOPERATIVE DIAGNOSES: 1. Term . 2. Previous section. 3. Active labor. POSTOPERATIVE DIAGNOSES: 1. Term . 2. Previous section. 3. Active labor. PROCEDURE PERFORMED: Repeat low cervical transverse section. SURGEON: Simon Mills MD WEIGHT ENGINEER: Dr. Muñoz. ANESTHESIA: Spinal. FINDINGS: Viable female infant with Apgars of 8 and 9. Arterial and venous cord gases pending. Normal appearing tubes and ovaries bilaterally. PROCEDURE IN DETAIL: The patient was taken to the operating room and after spinal anesthesia, was placed in the supine position and draped and prepped in the usual fashion. Old Pfannenstiel scar was excised. Underlying subcutaneous tissue was dissected down to the ventral abdominal fascia, which was nicked and opened in a horizontal manner. Preperitoneal fascia was dissected away until the peritoneal cavity was entered and opened in a vertical manner. Bladder blade was placed. Peritoneum overlying the uterus was elevated, opened in a semi-lunar fashion, the inferior margin of which was taken down creating a bladder flap. The uterus was entered sharply and extended in a semilunar fashion manually. Viable female was delivered. Cord was clamped and cut and the baby was passed off to pediatrics who was in attendance for the delivery. Cord gases and cord blood samples were obtained. Placenta was delivered spontaneously and the uterus was exteriorized. The uterine cavity was wiped clean of any residual blood tissue and/or clot. The patient received Hemabate 250 mcg directly into the myometrium to promote uterine tone. The uterine incision was then closed with 2 layers of 4-0 Vicryl, the first a running locking stitch, the second an imbricating stitch. Hemostasis achieved and the uterus was returned to the pelvic cavity. Pericolic gutters were cleared bilaterally of any blood tissue and/or clot. Sponge and needle count was correct. Uterine incision showed hemostasis. Rectus muscle was plicated in the midline with a running 2-0 Vicryl suture. The fascia was closed laterally with a running 0 Vicryl stitch. Subcutaneous tissue was irrigated with warm saline and the skin incision was closed with a 4-0 Monocryl subcuticular suture. Sterile dressing was applied and the patient was taken to the recovery room in satisfactory condition. I attest to the content of the Intraoperative Record and any orders documented therein. Any exception s are noted below.
[2019-06-20] MEDS: FERROUS SULFATE 325 MG TAB PO SCH (14:54)
[2019-06-20] MEDS: PRENATAL VITAMIN 1 TAB PO SCH (14:54)
[2019-06-20 15:11] LABS: Basophils # (auto) 0.02 K/uL (0-0.2); Basophils % (auto) 0.1 %; Eosinophils # (auto) 0.03 K/uL (0-0.5); Eosinophils % (auto) 0.1 %; Hematocrit (blood only) 29.1 % (37-47); Immature Granulocytes # (auto) 0.08 K/uL (0.00-0.02); Immature Granulocytes % (auto) 0.4 %; Lymphocytes # (auto) 1.49 K/uL (1.2-3.4); Lymphocytes % (auto) 6.7 %; Mean Corpuscular Hemoglobin 31.3 pg (25-34); Mean Corpuscular Hgb Conc 34.4 g/dL (32-36); Mean Corpuscular Volume 91.2 fL (80-100); Mean Platelet Volume 8.7 fL (7.4-10.4); Monocytes # (auto) 1.58 K/uL (0.11-0.59); Monocytes % (auto) 7.1 %; Neutrophils # (auto) 18.93 K/uL (1.4-6.5); Neutrophils % (auto) 85.6 %; Platelet Count 203 K/uL (130-400); RDW Coefficient of Variation 14.3 % (11.5-14.5); Red Blood Count 3.19 M/uL (4.2-5.4); White Blood Count 22.13 K/uL (4.8-10.8)
[2019-06-20] MEDS ORDERED: SENNA 8.6 MG TAB PO ONE (20:45)
[2019-06-21 06:13] LABS: Basophils # (auto) 0.03 K/uL (0-0.2); Basophils % (auto) 0.1 %; Eosinophils # (auto) 0.07 K/uL (0-0.5); Eosinophils % (auto) 0.3 %; Hematocrit (blood only) 29.6 % (37-47); Hemoglobin 9.9 g/dL (12.0-16.0); Immature Granulocytes # (auto) 0.14 K/uL (0.00-0.02); Immature Granulocytes % (auto) 0.6 %; Lymphocytes % (auto) 7.8 %; Mean Corpuscular Hemoglobin 31.1 pg (25-34); Mean Corpuscular Hgb Conc 33.4 g/dL (32-36); Mean Corpuscular Volume 93.1 fL (80-100); Monocytes # (auto) 1.11 K/uL (0.11-0.59); Monocytes % (auto) 5.1 %; Neutrophils # (auto) 18.73 K/uL (1.4-6.5); Neutrophils % (auto) 86.1 %; Platelet Count 228 K/uL (130-400); RDW Coefficient of Variation 14.4 % (11.5-14.5); RDW Standard Deviation 48.6 fL (36.4-46.3); Red Blood Count 3.18 M/uL (4.2-5.4); White Blood Count 21.78 K/uL (4.8-10.8)
--- NOTE | 2019-06-21 06:49 | Obstetrical Progress Note ---
Date of Service June 21, 2019 Assessment & Plan (1) delivery delivered: Patient doing well. Plan to advance diet today. Encourage ambulation. routine PP care. Day #:: 2 Subjective Ambulation: ambulating normally Voiding: no voiding problems Passing Gas:: Yes Diet Tolerance:: clear liquids Lochia:: Small Feeding Type:: breast feeding Patient has finally passed gas. Notes gets relief when takes pain meds. Physical Exam Constitutional WD/WN, vitals as above Cardiovascular Extremities: no calf tenderness and no edema Gastrointestinal (Abdomen) soft, distended, tympanetic ff/appropriately tender 1 below u incision--c/d/i Psychiatric A+Ox3, euthymic affect Results & Data Vital Signs (Past 12 Hours) Vital Signs Temp Pulse Resp BP Pulse Ox 06/20/19 23:10 36.4 C L 98 H 16 123/80 96 06/20/19 20:15 18 96 06/20/19 19:15 18 95 06/20/19 19:07 36.7 C 103 H 18 105/67 95
[2019-06-21] MEDS ORDERED: bisacodyL 5 MG TABEC PO PRN (06:58)
[2019-06-21] MEDS: OXYCODONE/ACETAMINOPHEN 5mg/325mg TAB PO PRN ×3 (08:30→23:11)
[2019-06-21] MEDS: PRENATAL VITAMIN 1 TAB PO SCH (08:30)
[2019-06-21] MEDS: SIMETHICONE 80 MG CHEW PO PRN (08:30)
[2019-06-21] MEDS: IBUPROFEN 600 MG TAB PO PRN ×3 (08:30→23:11)
[2019-06-21] MEDS: FERROUS SULFATE 325 MG TAB PO SCH (08:30)
[2019-06-21] MEDS ORDERED: Nursing to Pharmacy Communication ONE (20:25)
[2019-06-21] MEDS ORDERED: MAGNESIUM HYDROXIDE SUSP 30 ML UDC PO SCH (21:00)
[2019-06-21] MEDS ORDERED: SENNA 8.6 MG TAB PO SCH (21:00)
[2019-06-22 07:15] LABS: Hematocrit (blood only) 27.2 % (37-47); Hemoglobin 9.2 g/dL (12.0-16.0)
--- NOTE | 2019-06-22 07:31 | Obstetrical Progress Note ---
Date of Service June 22, 2019 Assessment & Plan (1) : POD#2 doing well. DC instructions reviewed. Rx percocet. Followup in 2 w in office for incision check. (2) delivery delivered: Subjective Ambulation: ambulating normally Voiding: no voiding problems Diet Tolerance:: regular diet Lochia:: Moderate Review of Systems All systems reviewed & are unremarkable except as noted in HPI & below Physical Exam Constitutional WD/WN, vitals as above no acute distress Respiratory normal respiratory effort Cardiovascular Rate/Rhythm: regular rate and regular rhythm Gastrointestinal (Abdomen) Inspection/Auscultation: abdomen normal to inspection; abdomen not distended Percussion/Palpation: abdomen soft Genitourinary OB Exam Abdomen: + fundal height Fundus: + firm; not tender Results & Data Vital Signs (Past 12 Hours) Vital Signs Temp Pulse Resp BP 06/21/19 23:15 36.5 C 70 18 126/83
[2019-06-22] MEDS: FERROUS SULFATE 325 MG TAB PO SCH (08:31)
[2019-06-22] MEDS: SIMETHICONE 80 MG CHEW PO PRN (08:31)
[2019-06-22] MEDS: PRENATAL VITAMIN 1 TAB PO SCH (08:31)
[2019-06-22] MEDS: OXYCODONE/ACETAMINOPHEN 5mg/325mg TAB PO PRN (08:32)
[2019-06-22] MEDS: IBUPROFEN 600 MG TAB PO PRN (08:33)
--- NOTE | 2019-06-23 07:33 | Discharge Summary ---
Date of Service June 23, 2019 Admission HPI Per Admitting Provider The patient is a 38-year-old 2 para 1 with an EDC of 26 June at 39+ weeks gestational age presents to labor and delivery in active labor. Patient states the contractions began at approximately 2200 hrs. on 18 June and increased in frequency. Patient denies rupture membranes or vaginal bleeding. The patient is scheduled for a repeat section on 19 June. Her previous his delivery was a section. This was complicated by a low-lying placenta 1.4 cm from the office and the patient has opted for a repeat section. Please see previous dictated H&P by the previous admitting physician for details of the . Discharge Data Consultations 06/20/19 00:33 Consult Anesthesiology Stat Procedures Performed Operation Date: 06/20/19 01:15 Actual Procedures p Section in for live female at 0136 - Simon Mills Jr, MD, [facility] Course (1) Previous delivery affecting , antepartum: Upon admission the patient's cervix was 4 centimeters dilated consistent with active labor. Because the patient had already been scheduled for a repeat section anesthesia and Pediatrics were notified. The patient underwent a low cervical transverse section. Postoperatively she did well. Wang catheter was removed on the 1st postoperative day. By the 2nd postoperative day the patient was ambulating without difficulty and tolerating a regular diet. She will follow up in the office in 2 weeks time for postoperative check but is always she was instructed to call with any questions problems or difficulties. Coding Level of Care Code None Diagnoses Previous delivery affecting , antepartum O34.219
== END 2019-06-22 12:25 | disposition home or self-care (01) | DRG 787 ==
LOC: OPB 00:04 → 4S1 00:08 → 4S2 05:21